=== PATIENT | female | born 2000 | race American Indian/Alaskan Native ===

== ENCOUNTER 2019-09-04 16:28 | Emergency (ER) | payer SELFPAY ==
--- NOTE | 2019-09-04 17:02 | Event Note ---
ED Screening Note Date of service: 09/04/19 Time: 17:00 ED Screening Note: 18 y/o female comes in for heavy vaginal discharge and nausea time today. LMP 08/03/19. + home preg test. This initial assessment/diagnostic orders/clinical plan/treatment(s) is/are subject to change based on patients health status, clinical progression and re- assessment by fellow clinical providers in the ED. Further treatment and workup at subsequent clinical providers discretion. Patient/guardian urged not to elope from the ED as their condition may be serious if not clinically assessed and managed. Initial orders include:
--- NOTE | 2019-09-04 20:05 | Emergency Department Report ---
ED Female HPI - General Chief complaint: Abdominal Pain Stated complaint: HEAVY DISCHARGE/ABD PAIN Time Seen by Provider: 09/04/19 16:59 Source: patient Mode of arrival: Ambulatory Limitations: No Limitations - History of Present Illness Initial comments: This is a 18-year-old -[place] female who presents to the emergency room with vaginal discharge, dysuria, and questionable for 1 week. Patient states she took a home test 1 was negative and the other one was positive. She is also complaining of some vaginal discharge with foul odor for one week. Patient denies nausea, vomiting, back pain, pelvic pain, urinary frequency, urgency, or dysuria. MD Complaint: vaginal discharge Onset/Timin -: week(s) Improves with: none Worsens with: none Are you Now?: No Last Menstrual Period: 05/18/19 EDC: 02/22/20 Associated Symptoms: vaginal discharge. denies: vaginal bleeding, abdominal pain, nausea/vomiting, fever/chills, headaches, loss of appetite, dysuria, hematuria, rash, seizure, shortness of breath, syncope, weakness - Related Data Sexually active: Yes : 0 Previous Rx's Medication Instructions Recorded Last Taken Type metroNIDAZOLE [Flagyl TAB] 500 mg PO Q12HR #14 tab 09/04/19 Unknown Rx Allergies Allergy/AdvReac Type Severity Reaction Status Date / Time No Known Allergies Allergy Verified 09/04/19 16:54 ED Review of Systems ROS: Stated complaint: HEAVY DISCHARGE/ABD PAIN Other details as noted in HPI Constitutional: denies: chills, fever Respiratory: denies: cough, shortness of breath, wheezing Cardiovascular: denies: chest pain, palpitations Gastrointestinal: denies: abdominal pain, nausea, diarrhea Genitourinary: discharge. denies: urgency, dysuria Musculoskeletal: denies: back pain, joint swelling, arthralgia Skin: denies: rash, lesions Neurological: denies: headache, weakness, paresthesias Psychiatric: denies: anxiety, depression ED Past Medical Hx - Past Medical History Previous Medical History?: No - Surgical History Past Surgical History?: No - Medications Home Medications: Home Medications Medication Instructions Recorded Confirmed Last Taken Type metroNIDAZOLE [Flagyl TAB] 500 mg PO Q12HR #14 tab 09/04/19 Unknown Rx ED Physical Exam - General Limitations: No Limitations General appearance: alert, in no apparent distress - Respiratory Respiratory exam: Present: normal lung sounds bilaterally. Absent: respiratory distress - Cardiovascular Cardiovascular Exam: Present: regular rate, normal rhythm. Absent: systolic murmur, diastolic murmur, rubs, gallop - GI/Abdominal GI/Abdominal exam: Present: soft, normal bowel sounds. Absent: distended, tenderness, guarding, rebound, rigid - External exam: Present: normal external exam Speculum exam: Present: vaginal discharge (malodorous yellowish white discharge). Absent: erythema, cervical discharge, vaginal bleeding, foreign body, tissue, laceration Bi-manual exam: Present: normal bi-manual exam. Absent: cervical motion tendernes, adnexal tenderness, adnexal mass, uterine enlargement, uterine tenderness - Extremities Exam Extremities exam: Present: normal inspection - Back Exam Back exam: Absent: CVA tenderness (R), CVA tenderness (L) - Neurological Exam Neurological exam: Present: alert, oriented X3, normal gait - Psychiatric Psychiatric exam: Present: normal affect, normal mood - Skin Skin exam: Present: warm, dry, intact, normal color. Absent: rash ED Course Vital Signs 09/04/19 16:57 Temperature 99.0 F Pulse Rate 89 Respiratory 18 Rate Blood Pressure 131/63 O2 Sat by Pulse 100 Oximetry ED Medical Decision Making - Lab Data Lab Results 09/04/19 09/04/19 Range/Units 18:58 19:55 HCG, Quant < 2 (0-4) mIU/mL Urine Color Yellow (Yellow) Urine Turbidity Clear (Clear) Urine pH 7.0 (5.0-7.0) Ur Specific [place] 1.027 (1.003-1.030) Urine Protein <15 mg/dl (Negative) mg/dL Urine Glucose (UA) Neg (Negative) mg/dL Urine Ketones Neg (Negative) mg/dL Urine Blood Neg (Negative) Urine Nitrite Neg (Negative) Urine Bilirubin Neg (Negative) Urine Urobilinogen < 2.0 (<2.0) mg/dL Ur Leukocyte Esterase Neg (Negative) Urine WBC (Auto) 2.0 (0.0-6.0) /HPF Urine RBC (Auto) 3.0 (0.0-6.0) /HPF U Epithel Cells (Auto) 10.0 (0-13.0) /HPF Urine Mucus 1+ /HPF - Medical Decision Making This is a 18-year-old -[place] female who presents with vaginal discharge and concern for possible for 2 weeks. Patient was examined by me. Vitals are stable and in no acute distress. A pelvic exam was performed. Obtained UA, hCG quant, wet prep, and gonorrhea and chlamydia. Negative test, unremarkable urinalysis. Wet prep positive for clue cells, negative yeast and trichomoniasis. Gonorrhea and chlamydia. Start metronidazole 500 mg by mouth twice a day 7 days, 0 refills. Discharged home in stable condition. Discussed prevention options. F/U with PCP or Health Department. Critical care attestation.: If time is entered above; I have spent that time in minutes in the direct care of this critically ill patient, excluding procedure time. ED Disposition Clinical Impression: Vaginal discharge, Negative test, Bacterial vaginitis Disposition: TO HOME OR SELFCARE Is pt being admited?: No Condition: Stable Instructions: Abdominal Pain (ED), Bacterial Vaginosis (ED) Additional Instructions: Continue safe sexual intercourse. Follow up with Primary Care Provider or health department. Prescriptions: metroNIDAZOLE [Flagyl TAB] 500 mg PO Q12HR #14 tab Referrals: [facility] [Outside] - 3-5 Days [facility] [Outside] - 3-5 Days [facility] [Outside] - 3-5 Days Forms: STI Treatment and Prevention Time of Disposition: 22:20
[2019-09-04 20:15] LABS: Bilirubin,Urine NEG (Negative); Blood,Urine NEG (Negative); Color,Urine Yellow (Yellow); Mucus,Urine 1+ /HPF; Protein,Urine <15 mg/dL mg/dL (Negative); Urobilinogen,Urine < 2.0 mg/dL (<2.0)
[2019-09-04 22:56] VITALS: BP 128/71
== END 2019-09-04 22:44 | disposition home or self-care (01) ==
LOC: ED 16:28
DX: N76.0 Acute vaginitis (principal); Z79.899 Other long term (current) drug therapy
CPT/HCPCS: 36415; 81001; 84702; 87210; 87591

== ENCOUNTER 2021-06-15 11:42 | Emergency (ER) | payer OTHER ==
[2021-06-15 12:15] VITALS: BP 142/67
--- NOTE | 2021-06-15 14:07 | Emergency Department Report ---
ED General Adult HPI - General Chief complaint: Urogenital-Female Stated complaint: FEVER/CHILLS Time Seen by Provider: 06/15/21 14:00 Source: patient Mode of arrival: Ambulatory Limitations: No Limitations - History of Present Illness Initial comments: Patient is a 20-year-old female presents emergency room points of a subjective fever that began 4 days ago. Patient has associated body aches, headache, chills. She states that she is also been having some urinary frequency. She denies any vomiting, diarrhea, chest pain, cough, shortness of breath, abdominal pain, vaginal discharge or dysuria. No past medical history. No allergies to medications. Last menstrual cycle 05/21/2021. She has not been vaccinated for COVID-19. She has not been tested for COVID-19 since becoming sick. - Related Data Previous Rx's Medication Instructions Recorded Last Taken Type metroNIDAZOLE [Flagyl TAB] 500 mg PO Q12HR #14 tab 09/04/19 Unknown Rx cephALEXin [Keflex] 500 mg PO BID 10 Days #20 capsule 06/15/21 Unknown Rx Allergies Allergy/AdvReac Type Severity Reaction Status Date / Time No Known Allergies Allergy Verified 06/15/21 12:14 ED Review of Systems ROS: Stated complaint: FEVER/CHILLS Other details as noted in HPI Comment: All other systems reviewed and negative ED Past Medical Hx - Past Medical History Previous Medical History?: No - Surgical History Past Surgical History?: No - Medications Home Medications: Home Medications Medication Instructions Recorded Confirmed Last Taken Type metroNIDAZOLE [Flagyl TAB] 500 mg PO Q12HR #14 tab 09/04/19 Unknown Rx cephALEXin [Keflex] 500 mg PO BID 10 Days #20 capsule 06/15/21 Unknown Rx ED Physical Exam - General Limitations: No Limitations General appearance: alert, in no apparent distress - Head Head exam: Present: atraumatic, normocephalic - Eye Eye exam: Present: normal appearance - ENT ENT exam: Present: normal orophraynx, mucous membranes moist, TM's normal bilaterally, normal external ear exam - Neck Neck exam: Present: full ROM. Absent: meningismus - Respiratory Respiratory exam: Present: normal lung sounds bilaterally. Absent: respiratory distress, wheezes, rales, rhonchi, stridor, chest wall tenderness, accessory muscle use, decreased breath sounds, prolonged expiratory - Cardiovascular Cardiovascular Exam: Present: regular rate, normal rhythm, normal heart sounds. Absent: systolic murmur, diastolic murmur, rubs, gallop - GI/Abdominal GI/Abdominal exam: Present: soft. Absent: distended, tenderness, guarding, rebound, rigid - Neurological Exam Neurological exam: Present: alert, oriented X3 - Psychiatric Psychiatric exam: Present: normal affect, normal mood - Skin Skin exam: Present: warm, dry, intact ED Course Vital Signs 06/15/21 06/15/21 12:14 14:05 Temperature 98.8 F Pulse Rate 118 H 98 H Respiratory 16 Rate Blood Pressure 142/67 O2 Sat by Pulse 97 98 Oximetry ED Medical Decision Making - Lab Data Vital Signs 06/15/21 06/15/21 12:14 14:05 Temperature 98.8 F Pulse Rate 118 H 98 H Respiratory 16 Rate Blood Pressure 142/67 O2 Sat by Pulse 97 98 Oximetry Lab Results 06/15/21 Range/Units Unknown Urine Color Yellow (Yellow) Urine Turbidity Slightly-cloudy (Clear) Urine pH 6.0 (5.0-7.0) Ur Specific [place] 1.016 (1.003-1.030) Urine Protein 100 mg/dl (Negative) mg/dL Urine Glucose (UA) Neg (Negative) mg/dL Urine Ketones 20 (Negative) mg/dL Urine Blood Mod (Negative) Urine Nitrite Neg (Negative) Urine Bilirubin Neg (Negative) Urine Urobilinogen 2.0 (<2.0) mg/dL Ur Leukocyte Esterase Sm (Negative) Urine WBC (Auto) 39.0 H (0.0-6.0) /HPF Urine RBC (Auto) 5.0 (0.0-6.0) /HPF U Epithel Cells (Auto) 5.0 (0-13.0) /HPF Urine Bacteria (Auto) 1+ (Negative) /HPF Urine Mucus Few /HPF Urine HCG, Qual Negative (Negative) - Medical Decision Making Patient is a 20-year-old female presents emergency room points of a subjective fever that began 4 days ago. Patient has associated body aches, headache, chills. She states that she is also been having some urinary frequency. She denies any vomiting, diarrhea, chest pain, cough, shortness of breath, abdominal pain, vaginal discharge or dysuria. No past medical history. No allergies to medications. Last menstrual cycle 05/21/2021. She has not been vaccinated for COVID-19. She has not been tested for COVID-19 since becoming sick. Initial vitals with tachycardia which improved upon repeat. No abnormality on physical examination as documented in chart. Breath sounds are clear bilaterally, no wheezing, no rales, no rhonchi, normal oropharynx, normal TMs and canals, no abdominal tenderness. UA shows evidence of UTI. Urine is negative. Patient given prescription for antibiotics. Advised patient Please alternate ibuprofen and then Tylenol every 6-8 hours as needed for fever. Increase your fluid intake over the next several days. Follow-up with a primary care doctor for reexamination and to have your urine retested for clearance of bacteria. Return to emergency room for any new or worsening symptoms. Critical care attestation.: If time is entered above; I have spent that time in minutes in the direct care of this critically ill patient, excluding procedure time. ED Disposition Clinical Impression: UTI (urinary tract infection) Qualifiers: Urinary tract infection type: acute cystitis Hematuria presence: without hem aturia Qualified Code(s): N30.00 - Acute cystitis without hematuria Disposition: HOME / SELF CARE / HOMELESS Is pt being admited?: No Does the pt Need Aspirin: No Condition: Stable Instructions: Urinary Tract Infection, Adult, [id number] Additional Instructions: Please alternate ibuprofen and then Tylenol every 6-8 hours as needed for fever. Increase your fluid intake over the next several days. Follow-up with a primary care doctor for reexamination and to have your urine retested for clearance of bacteria. Return to emergency room for any new or worsening symptoms. Prescriptions: cephALEXin [Keflex] 500 mg PO BID 10 Days #20 capsule Referrals: OLVIN ALEX MD [Staff Physician] - 2-3 Days [facility] [Provider Group] - 2-3 Days Forms: Work/School Release Form(ED) Time of Disposition: 14:29 Print Language: CANADIAN
[2021-06-15 14:25] LABS: Bacteria,Urine 1+ /HPF (Negative); Bilirubin,Urine NEG (Negative); Blood,Urine MOD (Negative); Color,Urine Yellow (Yellow); Mucus,Urine FEW /HPF
[2021-06-15 14:27] LABS: HCG Qualitative,Urine Negative (Negative)
== END 2021-06-15 14:51 | disposition home or self-care (01) ==
LOC: ED 11:42
DX: N39.0 Urinary tract infection, site not specified (principal); Z79.899 Other long term (current) drug therapy
CPT/HCPCS: 81001; 81025; 87076; 87086; 87186